=== PATIENT | female | born 1970 | race Caucasian/White ===

== ENCOUNTER → 2017-07-23 | Outpatient (CLI) | payer OTHER ==
[~2017-07-23] MED LIST: IBUP600T44 PO; MULT-506 PO; OXYC-57 PO
--- NOTE | 2017-07-26 15:20 | MAMMOGRAPHY REPORT ---
BILATERAL DIGITAL SCREENING MAMMOGRAM WITH CAD: 07/23/2017 CLINICAL HISTORY: Patient presents for routine screening. S/P bilateral augmentation. TECHNIQUE: Current study was also evaluated with a Computer Aided Detection (CAD) system. Bilateral CC and MLO views including implant displaced views were obtained. COMPARISON: Comparison is made to exams dated: 04/14/2016 mammogram, 05/24/2014 mammogram, 10/23/2013 ma mmogram, 02/27/2013 mammogram, 04/09/2011 mammogram, and 03/15/2013 mammogram. BREAST COMPOSITION: There are scattered areas of fibroglandular density in both breasts. FINDINGS: No suspicious masses, calcifications, or areas of architectural distortion are noted in ei ther breast. There has been no significant interval change compared to prior exams. Bilateral subpec david silicone implants are stable in appearance. A biopsy marker clip is again noted within the lef t upper outer quadrant. IMPRESSION: ACR BI-RADS CATEGORY 2: BENIGN There is no mammographic evidence of malignancy. A 1 year screening mammogram is recommended. The pa tient will receive written notification of the results. Approximately 10% of breast cancers are not detected with mammography. A negative mammographic report should not delay biopsy if a clinically suggestive mass is present. Alisha Garcia M.D. ah/:07/23/2017 16:01:17 Music Education Adjunct Professor: Yoana YANCEY(Ellen)(M), [facility] letter sent: Normal 1/2 BI-RADS Code: ACR BI-RADS Category 2: Benign
== END | disposition home or self-care (01) ==
LOC: C.MAMM 14:15
PROVIDERS: ATTEND Obstetrics & Gynecology
DX: N83.202 Unspecified ovarian cyst, left side (principal); Z12.31 Encounter for screening mammogram for malignant neoplasm of breast; Z98.82 Breast implant status

== ENCOUNTER → 2017-08-20 | Day surgery (SDC) | payer OTHER ==
[2017-07-23 16:28] LABS: BASO % 0.5 %; BASO ABS # 0.06 K/uL (0-0.2); EOS % 2.5 %; EOS ABS # 0.28 K/uL (0-0.5); HEMATOCRIT 41.1 % (37-47); IG# 0.03 K/uL (0.00-0.02); LYMPH % 31.5 %; LYMPH ABS # 3.51 K/uL (1.2-3.4); MEAN CELL VOLUME 87.6 fL (80-100); MEAN CORPUSCULAR HEMOGLOBIN 29.9 pg (25-34); MEAN CORPUSCULAR HGB CONC 34.1 g/dl (32-36); MEAN PLATELET VOLUME 9.3 fL (7.4-10.4); MONO % 7.5 %; MONO ABS # 0.83 K/uL (0.11-0.59); NEUT % 57.7 %; NEUT ABS # 6.42 K/uL (1.4-6.5); PLATELET COUNT 304 K/uL (130-400); RED CELL DISTRIBUTION WIDTH CV 14.6 % (11.5-14.5); RED CELL DISTRIBUTION WIDTH SD 46.7 fL (36.4-46.3); WHITE BLOOD COUNT 11.13 K/uL (4.8-10.8)
[2017-08-05 12:20] VITALS: Ht 170.2 cm; Wt 95.5 kg
--- NOTE | 2017-08-19 13:42 | HISTORY & PHYSICAL EXAMINATION ---
DATE OF ADMISSION: 08/20/2017 PREOPERATIVE HISTORY AND PHYSICAL CHIEF COMPLAINT: Persistent left ovarian cyst. HISTORY OF PRESENT ILLNESS: The patient is a 46-year-old white female who presents to discuss her left ovary. The patient had an episode of abdominal pain and bloating and had an ultrasound about 1 year ago at the [facility]. She had a left ovary that measured 4.4 x 2.8 x 2.8 cm for a volume of 18 mL with 2 complex cystic structures one 2.5 cm and one 1.7 cm. It was recommended that she follow up in 6-8 weeks, which did not occur. She finally had a repeat ultrasound in May showing a left ovary measuring 3.6 x 4.2 x 2.5 cm for 20 mL with 2 complex cystic structures, one measuring 2.5 and one measuring 2.1 cm. CA-125 is normal. I have spoken with the patient previously on the phone and discussed the results. She had discomfort at the time of her initial ultrasound, she has a history of a hysterectomy for failed ablation. PAST MEDICAL HISTORY: High blood pressure, pelvic pain, back pain, urge incontinence. PAST SURGICAL HISTORY: Significant for dysfunctional uterine bleeding resulting in hysterectomy. Includes a breast augmentation with prostatic implants, history of cholecystectomy, history of complete colonoscopy, history of D&C with hysteroscopy, history of endometrial ablation, history of tonsillectomy, and history of abdominal hysterectomy. FAMILY HISTORY: Significant for mother with hyperlipidemia, hypertension, osteoarthritis, and uterine cancer. Father with hyperlipidemia and hypertension. Denies family history of breast or colorectal cancer as well as ovarian cancer. SOCIAL HISTORY: The patient is currently . She has never a smoker. She is sexually active without issues. She notes a social alcohol history. CURRENT MEDICATIONS: Include amlodipine 5 mg daily, hydrochlorothiazide 25 mg daily, iron, potassium, valsartan, vitamin B, vitamin C, vitamin D. ALLERGIES: AMOXICILLIN. PHYSICAL EXAMINATION: GENERAL: This is a well-developed, well-nourished white female in no acute distress. VITAL SIGNS: Blood pressure 128/78, height 5 feet 6.5 inches, weight 212 pounds, BMI 33.7. NECK: Supple without thyromegaly or lymphadenopathy. CHEST: Clear to auscultation bilaterally. CARDIOVASCULAR: Regular rate and rhythm without murmurs, gallops or rubs. ABDOMEN: Soft, nontender, nondistended, without palpable masses. EXTREMITIES: Benign. ASSESSMENT AND PLAN: This is a 46-year-old white female status post hysterectomy for failed ablation who has a complex cystic structure on the left ovary that has been persistent for over a year. It does, however, essentially appeared to be unchanged over the last year. We discussed the possibility of continued expectant management with serial ultrasounds every 6 months for the next year and then if stable yearly after that. We also discussed the risks of laparoscopic salpingo-oophorectomy of the left ovary. The patient notes that she will no longer be able to see me after the of this coming year as her insurance and is changing and she will have to seek a [facility] physician. Therefore, she would like to proceed with laparoscopic left salpingo-oophorectomy. The risks of surgery were discussed with the patient including risks of anesthesia, bleeding requiring transfusion, infection, poor wound healing, urinary retention, damage to surrounding structures including bowel, bladder, vessels, nerves and ureters that may require further surgery, hospitalization or intervention. The other risks of any surgery were discussed including heart attack, blood clot, stroke or . Consent reviewed and signed. Questions were asked and answered. Did discuss that I do not think removal of this ovary will change any pain or discomfort symptoms she may be having. Surgery is planned for August 20.
[~2017-08-20] VITALS: Ht 170.2 cm; Wt 95.5 kg
[~2017-08-20] MED LIST changes: +ACETAMINOPHEN 1000 MG/100 ML IV IV ONE; +ACETAMINOPHEN 325 MG TAB PO PRN; +ACETAMINOPHEN 650 MG SUPP PR PRN; +AMLO5TAB3 PO; +ATROPINE SULFATE 0.1 MG/ML 5ML SYR IV PRN; +BUPIVACAINE 0.5 % 5 MG/1 ML MPF 30ML VIAL ONE; +CYAN1DRO SQ; +DEXAMETHASONE SOD INJ 4 MG/ML VIAL ONE; +DVN80 PO; +ERGO500037 PO; +EpHEDrine SULFATE INJ 50 MG/ML AMP IV PRN; +FENTANYL CITRATE INJ 50 MCG/1 ML 2 ML VIAL IV PRN; +FENTANYL CITRATE INJ 50 MCG/1 ML 2 ML VIAL ONE; +GABA-113 PO; +GLYCOPYRROLATE INJ 0.2 MG/ML VIAL ONE; +HYDR25TA4 PO; +HYDROmorphone INJ 1 MG/ML SYR IV PRN; -IBUP600T44 PO; +IBUPROFEN 200 MG TAB PO PRN; +IBUPROFEN 600 MG TAB PO PRN; +KETOROLAC TROMETHAMINE 30 MG/ML VIAL IV. PRN; +KETOROLAC TROMETHAMINE 30 MG/ML VIAL ONE; +LACTATED RINGER'S 1000ML 1,000 ML IV SCH; +LIDOCAINE HCL 2% 2 ML VIAL (20MG/ML) ONE; +METHYLENE BLUE 0.5% 10 ML VIAL ONE; +MIDAZOLAM HCL 1 MG/ML 2ML VIAL ONE; -MULT-506 PO; +MoRPHine SULFATE 2 MG/ML CARP IV PRN; +MoRPHine SULFATE 4 MG/ML 1 ML CARP\\VIAL IV PRN; +NEOSTIGMINE METHYLSULFATE 5 MG/5 ML SYR ONE; +ONDANSETRON INJ 2 MG/ML 2 ML VIAL IV PRN; +ONDANSETRON INJ 2 MG/ML 2 ML VIAL ONE; +OXYCODONE/ACETAMINOPHEN 5-325 TAB PO PRN; +POTA-639 PO; +PROMETHAZINE HCL INJ 6.25 MG in SODIUM CHLORIDE 0.9% 50ML 50 ML IV PRN; +PROPOFOL IV EMULSION 10 MG/ML 20 ML VIAL IV ONE; +ROCURONIUM BROMIDE 10 MG/ML 5 ML VIAL IV ONE
[2017-08-20 11:12] VITALS: BP 141/84; PULSE 84; TEMP 36.8; O2SAT 98
--- NOTE | 2017-08-20 13:28 | History & Physical Bridge Note ---
H&P Re-Evaluation Bridge Note: I have examined the patient, reviewed the History & Physical and in the interval since the performance of the History & Physical I have noted the following changes of clinical significance: No changes noted
--- NOTE | 2017-08-20 15:00 | [facility] Post Operative Brief Note ---
Immediate Operative Summary Operative Date Aug 20, 2017. Pre-Operative Diagnosis Left Ovarian Cyst Post-Operative Diagnosis Same as preop Procedure(s) Performed Left Laparoscopic Salpingo-Oopherectomy Surgeon Dr. Venegas Domain Architect Surgeon(s) Dr. Alejandro Estimated Blood Loss 5 ML Findings nl right tube, ovary adhesed to the pelvic side wall, left ovary overall appears normal but a couple of paratubal cysts. adhesions of the omentum to the upper right abdominal side wall. Fluids (cc crystalloids) 700cc Specimens A. Left Fallopian Tube and Ovary Drains none Anesthesia gett Complication(s) None Disposition Recovery Room / PACU
--- NOTE | 2017-08-20 15:02 | Discharge Instructions ---
Discharge Instructions Date of Service Aug 20, 2017. Visit Reason for Visit: Left Ovarian Cyst Discharge Discharge Diagnosis / Problem: s/p laproscopic removal of left tube and ovary Discharge Goals Goal(s): Specific goals Activity Recommendations Activity Limitations: per Instructions/Follow-up section Anesthesia . Post Anesthesia Instructions: If you have had General Anesthesia or IV Sedation: * Do not drive today. * Resume driving when surgeon permits. * Do not make important decisions or sign legal documents today. * Call surgeon for: 1. Temperature elevations greater than 101 degrees F. 2. Uncontrollable pain. 3. Excessive bleeding. 4. Persistent nausea and vomiting. 5. Medication intolerance (nausea, vomiting or rash). * For nausea and vomiting use only clear liquids such as: tea, soda, bouillon until nausea subsides, then gradually increase diet as tolerated. * If you have any concerns or questions, call your surgeon's office. If physician is unavailable and it is an emergency, call 911 or go to the nearest emergency room. . Instructions / Follow-Up Instructions / Follow-Up ACTIVITY RECOMMENDATIONS: * Rest the first 2-3 days. You should be back to your normal activity levels by day 3. * No heavy lifting for 2 weeks. * No intercourse, tampons or douching for 1-2 weeks. * You may shower the next day. * Do not drive anytime that you are taking narcotic pain medicines. RETURN TO SCHOOL/WORK: * May return to school or work after 2-3 days. DIET: Nausea may occur in the immediate post-operative period. If so, take clear liquids such as tea, bouillon, apple juice until all nausea has subsided, then resume usual diet. MEDICATIONS: Resume previous medications unless instructed otherwise by your surgeon. Ibuprofen 200mg 2-3 tablets every 4-6 hours as needed -- OR -- Aleve 2 tablets every 8-12 hours as needed for post-operative discomfort Medications are over the counter. Tylenol may be used if above medications are contraindicated or not preferred. Medication should be taken with food or milk. Do not take on an empty stomach. SPECIAL CARE INSTRUCTIONS: * Check temperature twice daily for one week. report any elevation over 101 degrees. * You may experience some vagina spotting and/or bleeding. This is normal for 1 -2 weeks and should not be heavier than a normal period. If it is unusual in amount, call your physician. * Post-operative discomfort may consist of a sore throat, a "bloated" feeling and pain in the shoulders. these are normal symptoms, which usually only last for 2-3 days. * Remove band-aids tomorrow and shower. There is no need to replace band-aids unless there is drainage or discomfort. FOLLOW UP VISIT: Call your doctor's office for a post-operative 2 week visit if not already scheduled. Diet Recommendations Recommended Home Diet: no limitations, resume previous diet Procedures Procedures Performed: Left Laparoscopic Salpingo-Oopherectomy Pending Studies Studies pending at discharge: no Medical Emergencies . Who to Call and When: Medical Emergencies: If at any time you feel your situation is an emergency, please call 911 immediately. . Non-Emergent Contact Non-Emergency issues call your: [address] Deputy Clerk . . "Provider Documentation" section prepared by So Venegas. . [place] Drug Monitoring Program Search Results: patient reviewed within database, no issues identified
--- NOTE | 2017-08-20 15:25 | Anesthesiology Progress Note ---
Anesthesia Post Op Note Date & Time Aug 20, 2017 at 15:25 Vital Signs Pain Intensity: 0 Vital Signs Past 12 Hours Date Time Temp Pulse Resp B/P (MAP) Pulse Ox O2 Delivery O2 Flow Rate FiO2 08/20/17 15:20 111/72 08/20/17 15:16 85 16 08/20/17 15:16 84 16 98 08/20/17 15:15 116/74 08/20/17 15:11 86 16 98 08/20/17 15:11 87 16 08/20/17 15:10 108/74 08/20/17 15:06 88 15 08/20/17 15:06 88 15 96 08/20/17 15:05 113/73 08/20/17 15:01 89 18 93 08/20/17 15:01 90 18 08/20/17 15:00 109/73 08/20/17 14:56 99 12 109/72 93 08/20/17 14:56 99 12 08/20/17 14:56 98 22 109/72 95 Oxymask 10 08/20/17 11:12 36.8 84 18 141/84 (103) 98 Room Air Notes Mental Status: alert / awake / arousable, participated in evaluation Pt Amnestic to Procedure: Yes Nausea / Vomiting: adequately controlled Pain: adequately controlled Airway Patency, RR, SpO2: stable & adequate BP & HR: stable & adequate Hydration State: stable & adequate Anesthetic Complications: no major complications apparent
[2017-08-20 15:43] VITALS: BP 114/68; PULSE 81; TEMP 36.3; O2SAT 94
[2017-08-20 16:15] VITALS: BP 113/72; PULSE 84; O2SAT 96
[2017-08-20 16:45] VITALS: BP 119/70; PULSE 79; TEMP 36.5; O2SAT 96
--- NOTE | 2017-08-26 07:58 | OPERATIVE REPORT ---
DATE OF OPERATION: 08/20/2017 PREOPERATIVE DIAGNOSES: Left complex ovarian cyst. POSTOPERATIVE DIAGNOSIS: Same, likely paratubal cyst. PROCEDURE: Laparoscopic left salpingo-oophorectomy. SURGEON: Dr. Venegas. WALKING DRAGLINE OPERATOR: Chantal Alejandro DO. ESTIMATED BLOOD LOSS: 5 mL. FINDINGS: Normal right tube and ovary adhesed to the right pelvic sidewall with a normal right ovary with a right tube adhesed to the right pelvic sidewall. Left ovary appears normal, but there are a couple of paratubal cysts, adhesions of the omentum to the upper right abdominal sidewall. FLUIDS: 700 mL. URINE OUTPUT: Clear yellow urine draining from the bladder at the end of the procedure. INDICATIONS: The patient is a 46-year-old white female with a persistent left complex ovarian cystic structure for over the last year. She desires its removal. COMPLICATIONS: None. DRAINS: None. DISPOSITION: To recovery room in stable condition. ANESTHESIA: General per endotracheal tube. OPERATION AND FINDINGS: PROCEDURE: The patient was taken to the operating room where she was identified verbally and by bracelet. She was placed in dorsal supine position where general anesthesia was induced without difficulty. She was then placed in dorsal lithotomy position in [facility]. Her arms were carefully tucked and draped at her sides. Her chest was padded and protected. The brush head maker was placed and she was prepped and draped in normal sterile fashion. A time-out was held identifying correct patient, procedure and positioning. Attention was turned to the vagina where a Gou catheter was placed and a moistened sponge on a stick was placed into the vagina. Gloves were then changed. Attention was then turned to the abdomen where an infraumbilical incision was made with a knife. Veress needle placed through this with low pressures and the abdomen insufflated with 3 liters of carbon dioxide gas. A 10 mm optical trocar was placed through here and the above noted findings were found. We proceeded with placement of two 5 mm trocars, both in the bilateral lower quadrants under direct visualization, then using the Harmonic scalpel and a grasper, the left adnexa was removed, being careful to avoid any contact with the ureter. A 5 mm camera was placed in the left lower quadrant port. A 10 mm EndoCatch bag was placed into the infraumbilical port. The specimen was placed in the bag and was removed atraumatically. Evaluation of the surgical site found it to be hemostatic and the procedure was terminated. The trocars were removed. The gas was released from the abdomen. A deep stitch was placed of 0 Vicryl in the infraumbilical incision and the skin incisions were then all closed with 4-0 Vicryl in a subcuticular fashion. The incisions were then infiltrated with 0.5% Marcaine. The instruments were removed from the vagina and the Guo catheter was removed. The procedure was thus terminated. All sponge, lap and needle counts were correct x2. The patient tolerated the procedure well and was taken to recovery room in stable condition. I attest to the content of the Intraoperative Record and any orders documented therein. Any exception s are noted below.
== END | disposition home or self-care (01) ==
LOC: C.ACU 10:49
PROVIDERS: ATTEND Obstetrics & Gynecology
DX: N83.202 Unspecified ovarian cyst, left side (principal); I10 Essential (primary) hypertension; Z90.710 Acquired absence of both cervix and uterus; Z98.82 Breast implant status; Z90.49 Acquired absence of other specified parts of digestive tract; Z90.89 Acquired absence of other organs; Z82.49 Family history of ischemic heart disease and other diseases of the circulatory system; Z80.49 Family history of malignant neoplasm of other genital organs; M19.90 Unspecified osteoarthritis, unspecified site; E66.9 Obesity, unspecified